=== PATIENT | male | born 1985 | race African-American/Black ===

== ENCOUNTER 2025-06-27 13:50 | Emergency (ER) | payer OTHER ==
[~2025-06-27] VITALS: Ht 165.1 cm; Wt 133.8 kg
[2025-06-27] MEDS: FENTANYL CITRATE/PF 100MCG/2 ML INJ IJ STA (16:10)
[2025-06-27 16:11] VITALS: PULSE 94; RESP 16; TEMP 98.2
[2025-06-27 16:50] VITALS: BP 154/91; PULSE 78; RESP 16; TEMP 98.3; O2SAT 99
== END 2025-06-27 16:43 | disposition home or self-care (01) ==
LOC: EDSEX 13:50 → ER 15:35
DX: M54.50 Low back pain, unspecified (principal); G89.29 Other chronic pain; R20.0 Anesthesia of skin; M79.89 Other specified soft tissue disorders; I10 Essential (primary) hypertension
CPT/HCPCS: 72148; 99283; J3010